=== PATIENT | male | born 1945 ===

== ENCOUNTER 2024-03-08 12:51 | Day surgery (SDC) | payer MEDICARE, OTHER, SELFPAY ==
[2024-03-08 13:26] VITALS: BP 154/75; PULSE 67; RESP 16; TEMP 36.8; O2SAT 100
[2024-03-08] MEDS: LACTATED RINGERS 1,000 ML 100 ML IV (13:43)
--- NOTE | 2024-03-08 13:48 | PM.HP.1 ---
History of Present Illness History of Present Illness Chief complaint: Dx Colonoscopy Narrative: History of adenomatous colon polyps [facility] Medical History (Updated 03/08/24 @ 12:45 by Nae Keys, RN) History of Mohs micrographic surgery for skin cancer (~2018) History of seasonal allergies History of thrombocytopenia History of hypertension History of irregular heartbeat History of hyperlipidemia History of atrial fibrillation (~2007) Surgical History (Updated 03/08/24 @ 12:45 by Nae Keys RN) History of neck surgery (~2004) History of knee surgery (~1994) History of hernia repair (~2005) History of prostatectomy Social History Smoking Status: Former smoker alcohol intake: current Meds Home Medications and Allergies Home Medications Medication Instructions Recorded Confirmed Type Aspirin 81 mg PO DAILY 03/08/24 03/08/24 History Calcium Magnesium 600 mg PO DAILY 03/08/24 03/08/24 History Century Mature Vitamin 1 tab PO DAILY 03/08/24 03/08/24 History Glucosamine Complex 750 mg PO DAILY 03/08/24 03/08/24 History Melatonin 3 mg PO BEDTIME 03/08/24 03/08/24 History Rosuvastatin 10 mg PO DAILY 03/08/24 03/08/24 History Allergies Allergy/AdvReac Type Severity Reaction Status Date / Time No Known Drug Allergies Allergy Verified 03/08/24 12:54 Exam Vital Signs (past 8 hours): - 03/08/24 13:26 Temperature 98.2 F Pulse Rate 67 Respiratory Rate 16 Blood Pressure 154/75 H Pulse Oximetry 100 Oxygen Delivery Method Room Air Oxygen Delivery Method Room Air Narrative Exam Narrative: Oropharynx free of lesions Chest clear to auscultation percussion Cardiac exam reveals no S3 or murmur Assessment & Plan Assessment & Plan narrative: History of adenomatous colon polyps need for follow-up colonoscopy which will probably be his last. Risks, benefits, alternatives have been explained.
--- NOTE | 2024-03-08 13:48 | PM.OP.COLON ---
Operative Date/Time/Diagnoses Date of procedure: 03/08/24 Pre-op diagnosis: See indication and findings Procedure & Clinicians Study performed: Colonoscopy Indications: History of polyps Surgeon: Nu Lisa Procedure Notes Procedure in detail: After informed consent was obtained the patient was placed in left lateral decubitus position. The video colonoscope was introduced the rectum slowly advanced cecum. Preparation was good. On slow withdrawal mucosa was carefully examined. The scope was removed. The patient tolerated procedure well. Blood loss none Complications none Sedation mac Findings 1. Normal colonoscopy to cecum except for the presence of previous tattoos. Given the patient's age he should not need follow-up colonoscopy
[2024-03-08 14:47] VITALS: BP 119/66; PULSE 55; RESP 15; TEMP 36.2; O2SAT 98
[2024-03-08 14:51] VITALS: BP 129/66; PULSE 56; RESP 12; O2SAT 97
[2024-03-08 14:56] VITALS: BP 126/67; PULSE 56; RESP 15; O2SAT 97
[2024-03-08 15:02] VITALS: BP 129/69; PULSE 56; RESP 16; TEMP 36.3; O2SAT 98
== END 2024-03-08 15:30 | disposition home or self-care (01) ==
PROVIDERS: PCP Internal Medicine; Referring Provider Internal Medicine Gastroenterology; Visit Provider Internal Medicine Gastroenterology
PROC: 0DJD8ZZ Inspection of Lower Intestinal Tract, Via Natural or Artificial Opening Endoscopic (ICD-10-PCS; CPT 45378; principal; 2024-03-08 14:00)
DX: Z12.11 Encounter for screening for malignant neoplasm of colon (principal); Z86.010 Personal history of colon polyps
CPT/HCPCS: G0105; J2704